=== PATIENT | male | born 1985 | race Caucasian/White ===

== ENCOUNTER 2017-03-20 02:24 | Emergency (ER) | payer OTHER ==
--- NOTE | 2017-03-20 02:30 | ED.PDOC ---
History of Present Illness - General Chief Complaint: Skin/Abrasion/Tear Stated Complaint: laceration right upper extremity multiple Time Seen by Provider: 03/20/17 02:26 Source: patient - History of Present Illness Initial Comments: Krzysztof Orellana 31 y/o male stated [place] and fell [place] [employer] to the ground landing on his right upper extremity and felt sharp pain on the area.Came to er for bandage but nurse looked at it noted multiple skin lacerations on right upper extremity.Denies any other injuries else where.Also with pain right wrist. Timing/Duration: just prior to arrival Severity: moderate Location: extremities - right upper extremity Improving Factors: nothing Worsening Factors: movement Associated Symptoms: other - pain upper extremity Allergies/Adverse Reactions: Allergies NO KNOWN ALLERGY Allergy (Verified 03/20/17 02:42) Home Medications: Ambulatory Orders Adderall 03/20/17 Review of Systems - Review of Systems Constitutional: States: no symptoms reported EENTM: States: no symptoms reported Respiratory: States: no symptoms reported Cardiology: States: no symptoms reported Gastrointestinal/Abdominal: States: no symptoms reported Genitourinary: States: no symptoms reported Musculoskeletal: States: see HPI Skin: States: no symptoms reported Neurological: States: no symptoms reported Past Medical History (General) - Patient Medical History Hx Seizures: No Hx Asthma: No Hx Hypertension: No - Vaccination History Hx Tetanus, Diphtheria Vaccination: Yes Family Medical History - Family History Father Family History: Unknown Physical Exam - Physical Exam General Appearance: Alert, Comfortable, No apparent distress Eyes, Ears, Nose, Throat Exam: normal ENT inspection Neck: non-tender, supple Cardiovascular/Chest: regular rate, rhythm, no murmur Respiratory: chest non-tender, lungs clear, normal breath sounds Gastrointestinal/Abdominal: non tender, soft Back Exam: normal inspection, no CVA tenderness Extremity: normal range of motion, no pedal edema, no calf tenderness Neurologic: alert, oriented x 3 Skin Exam: warm/dry, normal color Skin Problem Location: upper extremities Skin Character: other - lacerations multiple;but one laceration below elbow joint right- deep extending into brachioradialis muscle Progress - Progress Progress: 03/20/17 04:30 Last Vital Signs Temp 96.5 F L 03/20/17 03:20 Pulse 92 H 03/20/17 03:20 Resp 20 03/20/17 03:20 BP 131/92 03/20/17 03:20 Pulse Ox 99 03/20/17 03:20 03/20/17 06:05 Last Vital Signs Temp 98.4 F 03/20/17 06:01 Pulse 97 H 03/20/17 06:01 Resp 20 03/20/17 06:01 BP 150/96 03/20/17 06:01 Pulse Ox 97 03/20/17 06:01 - Results/Orders Results/Orders: Unable to repair laceration with local anesthesia due to extent of injury extending into muscle-brachioradialis.Nurse texted Dr. Castellanos for further evaluation and treatment of complex laceration. Last Vital Signs Temp 98.4 F 03/20/17 06:01 Pulse 97 H 03/20/17 06:01 Resp 03/20/17 06:01 BP 150/96 03/20/17 06:01 Pulse Ox 97 03/20/17 06:01 Laboratory Tests 03/20/17 03/20/17 04:55 05:30 WBC 16.3 H RBC 5.45 Hgb 15.9 Hct 46.3 MCV 84.9 MCH 29.2 MCHC 34.5 RDW 13.1 Plt Count 280 MPV 8.5 Absolute Neuts (auto) 14.10 H Absolute Lymphs (auto) 1.10 Absolute Monos (auto) 1.00 H Absolute Eos (auto) 0.10 Absolute Basos (auto) 0.00 Neutrophils % 86.5 H Lymphocytes % 6.7 L Monocytes % 5.9 Eosinophils % 0.6 L Basophils % 0.3 Lactic Acid 0.[address] Castellanos after sending text message 2x so patient decided to be transferred to [facility] - EKG/XRAY/CT XRAY: forearm right-no fracture;left wrist-no fracture Departure - Departure Clinical Impression: Pain in right wrist, Fall against object Laceration of forearm, right, complicated Qualifiers: Encounter type: initial encounter Qualified Code(s): S51.811A - Laceration without foreign body of right forearm, initial encounter Time of Disposition: 06:09 Disposition: Transfer to Hospital Condition: Good Departure Forms: Patient Portal Self Enrollment Home Medications: Ambulatory Orders Adderall 03/20/17 Transfer to Outside Facility - Transfer Information Accepting Facility: [facility] 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
[2017-03-20] MEDS ORDERED: CHLORHEXIDINE GLUCONATE 4 % 15 ML UD TOP ONE (02:39)
[2017-03-20] MEDS ORDERED: LIDOCAINE 1% W/ EPINEPHRINE 20 ML VIAL INJ ONE (02:41)
[2017-03-20] MEDS ORDERED: LIDOCAINE 1% 10 ML VIAL INJ ONE (02:41)
[2017-03-20] MEDS ORDERED: NEOMYCIN-BACITRACIN-POLYMYXIN 0.9 GM UD TOP ONE (03:09)
--- NOTE | 2017-03-20 03:32 | RAD ---
EXAM DESCRIPTION: 1. Right forearm, 2 views 2. Left wrist, 2 views. CLINICAL HISTORY: fall, laceration COMPARISON: None. FINDINGS/IMPRESSION: Right forearm: 2 views of the right forearm. Laceration in the ulnar sided soft tissues of the forearm with subcutaneous air. No definite radiopaque foreign body. No acute fracture or dislocation. Normal osseous mineralization. Left wrist: 2 views of the left wrist. No acute fracture or dislocation. The radius, capitate, and lunate have appropriate alignment. No definite scaphoid abnormality identified. Normal osseous mineralization. Electronically signed by: Alan Villar 03/20/2017 3:31 AM [facility]
--- NOTE | 2017-03-20 03:32 | RAD ---
EXAM DESCRIPTION: 1. Right forearm, 2 views 2. Left wrist, 2 views. CLINICAL HISTORY: fall, laceration COMPARISON: None. FINDINGS/IMPRESSION: Right forearm: 2 views of the right forearm. Laceration in the ulnar sided soft tissues of the forearm with subcutaneous air. No definite radiopaque foreign body. No acute fracture or dislocation. Normal osseous mineralization. Left wrist: 2 views of the left wrist. No acute fracture or dislocation. The radius, capitate, and lunate have appropriate alignment. No definite scaphoid abnormality identified. Normal osseous mineralization. Electronically signed by: Alan Villar 03/20/2017 3:31 AM [facility]
[2017-03-20] MEDS ORDERED: ceFAZolin SODIUM 1 GM in SODIUM CHL 0.9% 50ML MIN-BAG+ 50 ML IVPB ONE (04:11)
[2017-03-20] MEDS ORDERED: ceFAZolin SODIUM 1 GM VIAL ONE (04:13)
[2017-03-20] MEDS ORDERED: SODIUM CHL 0.9% 50ML MIN-BAG+ 50 ML IVPB ONE (04:14)
[2017-03-20] MEDS ORDERED: ACETAMINOPHEN 500 MG TAB PO ONE (04:50)
[2017-03-20] MEDS ORDERED: PIPERACILLIN/TAZOBACTAM 3.375 GM in SODIUM CHLORIDE 0.9% 100ML 100 ML IVPB ONE (05:27)
[2017-03-20] MEDS ORDERED: PIPERACILLIN/TAZOBACTAM 3.375 GM VIAL IVPB ONE (05:40)
[2017-03-20] MEDS ORDERED: SODIUM CHLORIDE 0.9% 100ML 100 ML IVPB ONE (05:41)
[2017-03-20] MEDS ORDERED: SODIUM CHLORIDE 0.9% 1000ML 1,000 ML IVS ONE (06:20)
[2017-03-20] MEDS ORDERED: SODIUM CHLORIDE 0.9% 1000ML 1,000 ML ONE (06:23)
[2017-03-20] MEDS ORDERED: fentaNYL CITRATE INJ 50 MCG/ML AMP IV ONE (06:27)
[2017-03-20 06:52] VITALS: TEMP 96.7; O2SAT 95
[2017-03-20 07:50] VITALS: BP 135/91
== END 2017-03-20 08:14 | disposition short-term general hospital (02) ==
LOC: ER 02:24
DX: S51.811A Laceration without foreign body of right forearm, initial encounter (principal); M25.531 Pain in right wrist; W01.0XXA Fall on same level from slipping, tripping and stumbling without subsequent striking against object, initial encounter; Y92.481 Parking lot as the place of occurrence of the external cause
CPT/HCPCS: 36415; 73090; 73100; 83605; 85025; 87040; 87804; J0690; J2543; J3010; J7030; J7050

== ENCOUNTER 2018-02-17 16:10 | Emergency (ER) | payer OTHER ==
[2018-02-17 16:19] VITALS: BP 122/94; TEMP 98.1; O2SAT 94
--- NOTE | 2018-02-17 16:23 | ED.PDOC ---
History of Present Illness - General Chief Complaint: Laceration Stated Complaint: laceration to left hand Time Seen by Provider: 02/17/18 16:13 Source: patient Exam Limitations: no limitations - History of Present Illness Initial Comments: Krzysztof Orellana 32 y/o male [employer] stated that they were arresting a person and came in contact with something sharp where they were making the arrest noted blood on the gloved finger as well as the men they were arresting.His adult Tdap-up to date.Unable to locate the object that he come in contact with. Timing/Duration: just prior to arrival Severity: mild Location: hands - left index finger Improving Factors: nothing Worsening Factors: movement Associated Symptoms: other - pain Allergies/Adverse Reactions: Allergies NO KNOWN ALLERGY Allergy (Verified 03/20/17 02:42) Home Medications: Ambulatory Orders Amphetamine-Dextroamphetamine [Adderall 15 mg] 1 tab PO BID 02/17/18 Review of Systems - Review of Systems Skin: States: see HPI All other Systems: Reviewed and Negative, No Change from Baseline Past Medical History (General) - Patient Medical History Hx Seizures: No Hx Stroke: No Hx Asthma: No Hx Congestive Heart Failure: No Hx Hypertension: No Hx Diabetes: No Surgical History: other - complex laceration repair - Vaccination History Hx Tetanus, Diphtheria Vaccination: Yes - current Hx Influenza Vaccination: No - Social History Hx Tobacco Use: No Family Medical History - Family History Father Family History: Unknown Physical Exam - Physical Exam General Appearance: Alert, Comfortable, No apparent distress Eyes, Ears, Nose, Throat Exam: normal ENT inspection Neck: non-tender, normal inspection Cardiovascular/Chest: normal peripheral pulses, regular rate, rhythm, no murmur Respiratory: chest non-tender, lungs clear Gastrointestinal/Abdominal: soft Back Exam: normal inspection Extremity: normal range of motion, non-tender Neurologic: alert, oriented x 3 Skin Exam: warm/dry, normal color, other - sperficial skin laceration left index finger Skin Problem Location: upper extremities - left index finger laceration Lymphatic: no adenopathy Progress - Progress Progress: 02/17/18 16:26 Vital Signs - 8 hr 02/17/18 16:14 Temperature 98.1 F Pulse Rate [ 90 Left Brachial] Respiratory 20 Rate Blood Pressure 122/94 [Left Arm] O2 Sat by Pulse 94 L Oximetry 02/17/18 16:26 wound cleanse by nurse and applied Neosporin Ointment covered with Band-Aid Departure - Departure Clinical Impression: Superficial laceration of skin Disposition: Discharge to Home or Self Care Condition: Good Departure Forms: ED Discharge - Pt. Copy, Patient Portal Self Enrollment Instructions: Wound Care (DC) Home Medications: Ambulatory Orders Amphetamine-Dextroamphetamine [Adderall 15 mg] 1 tab PO BID 02/17/18 Additional Instructions: Follow up with Kathy Ball Md 19 Feb 2018 for re check
[2018-02-17] MEDS ORDERED: NEOMYCIN-BACITRACIN-POLYMYXIN 0.9 GM UD TOP ONE (16:24)
== END 2018-02-17 16:42 | disposition home or self-care (01) ==
LOC: ER 16:10
DX: S61.211A Laceration without foreign body of left index finger without damage to nail, initial encounter (principal); W45.8XXA Other foreign body or object entering through skin, initial encounter; Y99.0 Civilian activity done for income or pay; Y92.69 Other specified industrial and construction area as the place of occurrence of the external cause